=== PATIENT | male | born 1945 | race Two or more races ===

== ENCOUNTER 2017-11-08 21:44 | Emergency (ER) | payer OTHER ==
[~2017-11-08] VITALS: Ht 162.6 cm; Wt 66.2 kg
[2017-11-08 22:05] VITALS: Ht 162.6 cm; Wt 66.2 kg
[2017-11-08 23:21] LABS: PLATELET COUNT 158 x10^3mcL (130-400); RED CELL DISTRIBUTION WIDTH 13.6 % (11.5-14.5)
[2017-11-08 23:24] LABS: CALCIUM 8.7 mg/dL (8.5-10.1); CARBON DIOXIDE 28.4 mmol/L (21-32); CHLORIDE SERUM 104 mmol/L (98-107); GLUCOSE SERUM 136 mg/dL (74-106); SODIUM SERUM 139 mmol/L (136-145)
[2017-11-08 23:26] LABS: BASOPHIL % 0 % (0-2)
[2017-11-08 23:28] LABS: ALBUMIN 4.1 g/dL (3.4-5.0); ALKALINE PHOSPHATASE 62 U/L (46-116); ALT/SGPT 20 U/L (16-63); AMYLASE 50 U/L (25-115); AST/SGOT 16 U/L (15-37); BILIRUBIN TOTAL 0.5 mg/dL (0.20-1.00); LIPASE 98 IU/L (73-393); TOTAL PROTEIN, SERUM 7.1 g/dL (6.4-8.2)
[2017-11-09 01:30] VITALS: BP 107/74
== END 2017-11-09 01:31 | disposition home or self-care (01) ==
LOC: ED 21:44
PROVIDERS: Emergency Medicine
DX: R11.10 Vomiting, unspecified (principal); R10.9 Unspecified abdominal pain; E86.0 Dehydration; R19.7 Diarrhea, unspecified; R68.83 Chills (without fever); I10 Essential (primary) hypertension
CPT/HCPCS: 83880; J2405; J7030